=== PATIENT | male | born 1950 | race African-American/Black ===

== ENCOUNTER 2022-06-15 10:37 | Outpatient (CLI) | payer BC, SELFPAY ==
[2022-06-15 15:00] LABS: Albumin* 3.7 g/dL (3.3-5.0); Chloride* 106 mmol/L (96-114); Sodium* 134 mmol/L (135-149)
[2022-06-15 15:02] LABS: Cholesterol* 143 mg/dL (90-199)
[2022-06-15 15:03] LABS: Alanine Aminotransferase* 19 U/L (4-50); Alkaline Phosphatase* 121 U/L (40-150); Aspartate Amino Transferase* 33 U/L (12-35); Bilirubin Total* 0.3 mg/dL (0.1-1.5); Blood Urea Nitrogen* 17 mg/dL (7-30); Carbon Dioxide* 20 mmol/L (20-32); Creatinine* 1.7 mg/dL (0.5-1.5); Estimated Glomerular Filt Rate 43 ml/min; Glucose* 115 mg/dL (60-115); Total Protein* 6.7 g/dL (6.0-8.3); Triglycerides* 121 mg/dL (40-149)
[2022-06-15 15:04] LABS: Calcium* 8.6 mg/dL (8.4-10.6); HDL Cholesterol* 63 mg/dL (>=40); LDL Cholesterol Calculated 56 mg/dL (<100)
[2022-06-15 15:16] LABS: Microalbumin Creatinine Ratio 170 mg/g (0-30); Microalbumin Urine 10 mg/dL
[2022-06-15 15:34] LABS: PSA Screen* 3.11 ng/mL (0.10-4.00)
[2022-06-16 20:38] LABS: Keppra (Levetiracetam) 63 ug/mL (10-40)
== END 2022-06-15 10:38 | disposition home or self-care (01) ==
LOC: LAB 10:39
PROVIDERS: PCP Family Medicine; Visit Provider Family Medicine
DX: Z00.00 Encounter for general adult medical examination without abnormal findings (principal); E11.9 Type 2 diabetes mellitus without complications; I10 Essential (primary) hypertension; E87.1 Hypo-osmolality and hyponatremia; N18.9 Chronic kidney disease, unspecified; F03.90 Unspecified dementia, unspecified severity, without behavioral disturbance, psychotic disturbance, mood disturbance, and anxiety; K86.89 Other specified diseases of pancreas; G40.209 Localization-related (focal) (partial) symptomatic epilepsy and epileptic syndromes with complex partial seizures, not intractable, without status epilepticus; Z12.5 Encounter for screening for malignant neoplasm of prostate
CPT/HCPCS: 36415; 80053; 80061; 80177; 82043; 82570; 84153

== ENCOUNTER 2022-08-10 13:46 | Outpatient (CLI) | payer BC, SELFPAY ==
[2022-08-10 19:36] LABS: Chloride* 95 mmol/L (96-114); Potassium* 4.4 mmol/L (3.6-5.1); Sodium* 127 mmol/L (135-149)
[2022-08-10 19:38] LABS: Bilirubin Total* 0.4 mg/dL (0.1-1.5); Carbon Dioxide* 16 mmol/L (20-32); Creatinine* 1.6 mg/dL (0.5-1.5); Estimated Glomerular Filt Rate 46 ml/min
[2022-08-10 19:39] LABS: Alanine Aminotransferase* 17 U/L (4-50); Alkaline Phosphatase* 133 U/L (40-150); Aspartate Amino Transferase* 25 U/L (12-35); Blood Urea Nitrogen* 13 mg/dL (7-30); Calcium* 7.9 mg/dL (8.4-10.6); Glucose* 167 mg/dL (60-115)
[2022-08-12 17:49] LABS: Keppra (Levetiracetam) 12 ug/mL (10-40)
== END 2022-08-10 13:47 | disposition home or self-care (01) ==
PROVIDERS: PCP Family Medicine; Visit Provider Family Medicine
DX: E87.1 Hypo-osmolality and hyponatremia (principal); G40.209 Localization-related (focal) (partial) symptomatic epilepsy and epileptic syndromes with complex partial seizures, not intractable, without status epilepticus; R53.83 Other fatigue; F03.90 Unspecified dementia, unspecified severity, without behavioral disturbance, psychotic disturbance, mood disturbance, and anxiety; E11.9 Type 2 diabetes mellitus without complications
CPT/HCPCS: 80053; 80177

== ENCOUNTER 2023-05-29 08:08 | Outpatient (CLI) | payer BC, SELFPAY | END 2023-05-29 08:09 | disposition home or self-care (01) | PROVIDERS: PCP Family Medicine; Visit Provider Family Medicine | DX: Z00.00 Encounter for general adult medical examination without abnormal findings (principal); E11.9 Type 2 diabetes mellitus without complications; I10 Essential (primary) hypertension; R53.83 Other fatigue; E87.1 Hypo-osmolality and hyponatremia; N18.9 Chronic kidney disease, unspecified | CPT/HCPCS: 80053; 80061; 80177; 82043; 82570; 84153; 84443 ==